=== PATIENT | female | born 1955 | race Caucasian/White ===

== ENCOUNTER → 2023-04-01 14:38 | Outpatient (CLI) | payer MEDICARE, SELFPAY ==
--- NOTE | 2023-04-01 | DI.MG.S_ITS ---
BILATERAL DIGITAL SCREENING MAMMOGRAM 3D/2D WITH CAD: 04/01/2023 CLINICAL: Routine screening. No prior exams were available for comparison. Both breasts are heterogeneously dense, which may obscure small masses (category c / 51-75% glandular tissue). Current study was also evaluated with a Computer Aided Detection (CAD) system. There is a round focal asymmetry in the right breast at 10 o'clock middle depth. No other significant masses, calcifications, or other findings are seen in either breast. IMPRESSION: INCOMPLETE: NEEDS ADDITIONAL IMAGING EVALUATION The round focal asymmetry in the right breast is indeterminate. Additional views with possible ultrasound are recommended. Based on the Tyrer Cuzick model (a risk assessment model) the patient's lifetime risk is 9.7% and her 10 year risk is 4.9%. According to the ACR, ACS, and NCCN guidelines, an annual breast MRI exam along with mammogram is recommended if the patient's lifetime risk is 20% or greater. This exam was interpreted at Station ID: [id number]. NOTE: For mammograms, a report in lay terms will be sent to the patient. Approximately 15% of breast malignancies will not be visualized mammographically. In the management of a palpable breast mass, a negative mammogram must not discourage biopsy of a clinically suspicious lesion. Electronically Signed By: Nayeli la/amelie:04/01/2023 17:00:30 letter sent: Additional Imaging Needed ACR BI-RADS Category 0: Incomplete [id number]
== END ==
PROVIDERS: PCP Registered Nurse; Referring Provider Registered Nurse; Visit Provider Registered Nurse
DX: Z12.31 Encounter for screening mammogram for malignant neoplasm of breast (principal)
CPT/HCPCS: 77063; 77067

== ENCOUNTER → 2023-04-18 09:27 | Outpatient (CLI) | payer MEDICARE, SELFPAY ==
--- NOTE | 2023-04-18 | DI.US.S_ITS ---
LIMITED ULTRASOUND OF RIGHT BREAST: 04/18/2023 CLINICAL: Patient returns today to evaluate an asymmetry in the right breast. Comparison is made to exams dated: 04/18/2023 mammogram, 04/01/2023 mammogram - [facility], 05/08/2021 mammogram, 07/13/2019 mammogram, and 01/02/2016 mammogram - outside location. Color flow and real-time ultrasound of the right breast 9-12 o'clock region were performed. No definite sonographic correlate identified for mammographic mass seen in the upper outer quadrant. IMPRESSION: PROBABLY BENIGN Right breast oval circumscribed mass in the upper outer quadrant without sonographic correlate initially seen on baseline screening mammogram. Finding may represent an intramammary lymph node and is probably benign. A follow-up mammogram in 6 months is recommended to demonstrate stability. Findings and recommendations were conveyed to the patient at the time of imaging completion. This exam was interpreted at Station ID: [id number]. Electronically Signed By: Pamela duke/:04/24/2023 01:30:13 letter sent: Followup Recommended Ultrasound BI-RADS: 3 Probably benign
--- NOTE | 2023-04-18 | DI.MG.S_ITS ---
UNILATERAL RIGHT DIGITAL DIAGNOSTIC MAMMOGRAM 3D/2D WITH ADDITIONAL VIEWS: 04/18/2023 CLINICAL: Additional evaluation requested from prior study. Comparison is made to exams dated: 04/01/2023 mammogram - [facility], 05/08/2021 mammogram, 07/13/2019 mammogram, and 01/02/2016 mammogram - outside location. The right breast is heterogeneously dense, which may obscure small masses (category c / 51-75% glandular tissue). There is a 4 mm oval mass with a circumscribed margin in the right breast upper outer quadrant middle depth. Finding corresponds to mass seen on baseline screening mammogram 04/01/2023. No other significant masses or calcifications are seen in the breast. IMPRESSION: INCOMPLETE: NEEDS ADDITIONAL IMAGING EVALUATION Right breast upper outer quadrant 4 mm oval mass. Recommend further evaluation with targeted right breast ultrasound, which will immediately follow this exam. Based on the Tyrer Cuzick model (a risk assessment model) the patient's lifetime risk is 9.7% and her 10 year risk is 4.9%. According to the ACR, ACS, and NCCN guidelines, an annual breast MRI exam along with mammogram is recommended if the patient's lifetime risk is 20% or greater. This exam was interpreted at Station ID: [id number]. NOTE: For mammograms, a report in lay terms will be sent to the patient. Approximately 15% of breast malignancies will not be visualized mammographically. In the management of a palpable breast mass, a negative mammogram must not discourage biopsy of a clinically suspicious lesion. Electronically Signed By: Pamela Shahid M.D. esb/:04/19/2023 01:20:33 ACR BI-RADS Category 0: Incomplete [id number]
== END ==
PROVIDERS: PCP Registered Nurse; Referring Provider Registered Nurse; Visit Provider Registered Nurse
DX: N63.11 Unspecified lump in the right breast, upper outer quadrant; R92.8 Other abnormal and inconclusive findings on diagnostic imaging of breast
CPT/HCPCS: 76642; 77065; G0279

== ENCOUNTER → 2023-11-05 11:54 | Outpatient (CLI) | payer MEDICARE, SELFPAY ==
--- NOTE | 2023-11-05 11:56 | DI.MG.S_ITS ---
UNILATERAL RIGHT DIGITAL DIAGNOSTIC MAMMOGRAM 3D/2D: 11/05/2023 CLINICAL: Right short follow up. Comparison is made to exams dated: 04/18/2023 mammogram, 04/01/2023 mammogram - [facility], and 05/08/2021 mammogram - outside location. The right breast is heterogeneously dense, which may obscure small masses (category c / 51-75% glandular tissue). Redemonstration of previously described 4 mm oval mass with a circumscribed margin in the right breast superior lateral quadrant anterior depth. This is not significantly changed and was not seen on the prior ultrasound. No other significant masses or calcifications are seen in the breast. IMPRESSION: PROBABLY BENIGN The stable 4 mm oval mass in the right breast is probably benign. A follow-up bilateral mammogram in 6 months is recommended to demonstrate stability. Findings and recommendations were conveyed to the patient during today's evaluation. Based on the Tyrer Cuzick model (a risk assessment model) the patient's lifetime risk is 9.3% and her 10 year risk is 4.9%. According to the ACR, ACS, and NCCN guidelines, an annual breast MRI exam along with mammogram is recommended if the patient's lifetime risk is 20% or greater. This exam was interpreted at Station ID: [id number]. NOTE: For mammograms, a report in lay terms will be sent to the patient. Approximately 15% of breast malignancies will not be visualized mammographically. In the management of a palpable breast mass, a negative mammogram must not discourage biopsy of a clinically suspicious lesion. Electronically Signed By: William Alejandre M.D. aty/:11/05/2023 12:41:52 letter sent: Followup Recommended ACR BI-RADS Category 3: Probably benign [id number]
== END ==
PROVIDERS: PCP Registered Nurse; Referring Provider Registered Nurse; Visit Provider Registered Nurse
DX: R92.8 Other abnormal and inconclusive findings on diagnostic imaging of breast (principal); N63.11 Unspecified lump in the right breast, upper outer quadrant; R92.331 Mammographic heterogeneous density, right breast
CPT/HCPCS: 77065; G0279

== ENCOUNTER 2023-12-21 10:28 | Emergency (ER) | payer MEDICARE, SELFPAY ==
[2023-12-21] VITALS (10 sets, daily range): BP systolic 133–147; BP diastolic 2–82; PULSE 61–84; RESP 16; TEMP 36.9; O2SAT 96–99; BMI 31.3
[2023-12-21] MEDS: PROPARACAINE 0.5% OPHTH SOL 1 DROPS EYE-BOTH (11:17)
--- NOTE | 2023-12-21 11:17 | ED_ITS ---
HPI - Eye Problem General Chief complaint: Eye Problems Stated complaint: Retinal detachment left eye Time Seen by Provider: 12/21/23 11:07 Source: patient Mode of arrival: Ambulatory Limitations: no limitations History of Present Illness HPI Narrative: This is a 68-year-old female with history of hypothyroidism, peripheral vitreous detachment on the right with intervention patient who wears glasses. Patient presents with concern for retinal detachment of the left eye. She states she has normal spider webbing in her vision in both eyes, last night noticed a backwards 3 in her left eye vision. This morning it had turned into a black spot. She is also noticed a few flashes on the left side as well. The spot resolves if she covers her left eye returns when she covers her right. It moves when she moves her eye. She does not have any pain she has not had any erythema, no swelling or drainage. She denies headaches or other symptoms. She has not had any nausea or vomiting. She states only home medication is levothyroxine takes Advil occasionally. Has allergies reported to morphine, sulfa and amoxicillin. Patient notes she had treatment to her right eye for vitreal detachment but has not ever had any interventions on the left. She was following regularly with Ophthalmology and a retinal specialist in [place] but has recently moved to the area and has not established with an ophthalmolo gist. Related Data Allergies Allergy/AdvReac Type Severity Reaction Status Date / Time morphine Allergy Vomiting Verified 12/21/23 11:17 Sulfa (Sulfonamide Allergy Hives Verified 12/21/23 11:17 Antibiotics) amoxicillin AdvReac Gastrointestinal Verified 12/21/23 11:17 Upset Review of Systems Review of Systems ROS Unobtainable: All systems reviewed & are unremarkable except as noted in HPI and below Patient History Social History Smoking Status: Never smoker Smoking Status: Never smoker alcohol intake frequency: a few times a month Substance Use Type: does not use Exam Narrative Exam Narrative: GEN: well nourished, well appearing female, alert and oriented x 3, patient appears to be in mild distress. HEENT: Atraumatic, pupils are equal round reactive to light, extraocular movements are intact, nares are clear, TMs are clear with no fluid, there is no conjunctival pallor. Throat is clear without any exudates, erythema, tonsillar enlargement or uvular deviation Visual acuity: right [20/20], left [20/25] with corrective glasses, 20/20 bilaterally. IOP: Right 19 mm Hg, Left 20 mm Hg General: no globe trauma Eyelids: normal inspection, eyelids everted for exam on left. Conjunctiva/Sclera: normal inspection Corneas: normal inspection, examined with fluroscein on bilateral punctate uptake. EOM: intact, no palsy/entrapment Pupils: PERRL, normal accomadation, pupil normal Anterior Chambers: normal inspection, no hypema Posterior: normal fundoscopic on of the left haziness over to the left lateral border but no clear retinal detachment noted. HEART: Regular rate and rhythm without murmur, clicks, rubs. No carotid bruits, pulses are equal in upper and lower extremities LUNGS:Lungs clear to auscultation, no wheezes, rales, crackles, chest moves symmetrically MSCL: full range of motion, normal gait NEURO:CN 2-12 intact, sensation normal Initial Vital Signs Initial Vital Signs: Vital Signs Pulse Rate 74 12/21/23 10:55 Blood Pressure 147/72 H 12/21/23 10:55 Pulse Oximetry 96 12/21/23 10:55 Course Orders Ordered: Discontinued Medications Fluorescein Sodium (Fluorescein 1 Mg Strip) 1 mg EYE-BOTH NOW ONE Stop: 12/21/23 11:08 Last Admin: 12/21/23 11:18 Dose: 1 mg Documented By: KEANU Proparacaine HCl (Proparacaine 0.5% Ophth Azeb) 1 drops EYE-BOTH NOW ONE Stop: 12/21/23 11:08 Last Admin: 12/21/23 11:17 Dose: 1 drop Documented By: KEANU Vital Signs Vital signs: Vital Signs - 8 hr 12/21/23 11:12 12/21/23 11:12 12/21/23 11:30 Pulse Rate 68 62 Blood Pressure 146/80 H Pulse Oximetry 97 98 Oxygen Delivery Method 12/21/23 11:42 12/21/23 11:42 12/21/23 12:00 Pulse Rate 65 66 Blood Pressure 137/75 Pulse Oximetry 96 98 Oxygen Delivery Method 12/21/23 12:01 12/21/23 12:01 12/21/23 12:08 Pulse Rate 67 64 Blood Pressure 140/67 Pulse Oximetry 97 96 Oxygen Delivery Method 12/21/23 12:08 12/21/23 12:30 Pulse Rate 61 Blood Pressure 136/70 134/76 Pulse Oximetry 98 Oxygen Delivery Method Room Air MDM - Eye Problem MDM Narrative Medical decision making narrative: 68-year-old female presents with a concern for retinal detachment her history somewhat concerning exam there is a little bit of change in the left posterior eye but did not clearly detachment. Pressures are appropriate, visual acuity is actually quite good but she has had some progressive symptoms. There is no Ophthalmology on-call at our facility or available this weekend. Call to [facility] Ophthalmology, spoke with Dr. Marx with Ophthalmology. She notes that this could be potential posterior detachment versus vitreal. Would recommend repeat eye exam within 24-48 hours for dilated eye exam. Discussed can not get her in any way locally before Saturday but can be seen Saturday. She states this would be acceptable unless patient is having any changes to vision. Patient can self present to [facility] ED she is having any worsening symptoms or present to our emergency department again. Spoke with patient gave her options, we also discussed she can drive directly down to [facility] ED to be evaluated this weekend by Ophthalmology. Ophthalmology did discuss that has an option for her to self present she is having any worsening changes. Did contact for ophthalmology follow up Saturday. Discharge Plan Departure Patient Disposition: Home Clinical Impression: Alteration in vision Activity Restrictions/Additional Instructions: I spoke with the ophthalmology at [facility], they recommend a dilated eye exam with the next 24-48 hours. If you are comfortable you can be seen by Dr. Heart or Dr. Riley here locally on Saturday. You can call the below number to set up an appointment 1st thing Saturday. There is concern for possible vitreal de tachment versus retinal detachment. They do recommend if you have any worsening changes in the interim to return here to be transferred to [facility] or you can go directly to [facility] Emergency Department. Please return if you are having worsening vision changes new pain, any headaches, vomiting, redness swelling or other changes to your eye. Referrals: Brent Heart MD [Physician] - Milady Dougherty ARNP [Primary Care Provider] - Stand Alone Forms: Patient Portal/API
[2023-12-21] MEDS: FLUORESCEIN 1 MG STRIP EYE-BOTH (11:18)
== END 2023-12-21 12:30 | disposition home or self-care (01) ==
PROVIDERS: Emergency Provider Emergency Medicine; PCP Registered Nurse
DX: H53.8 Other visual disturbances (principal)
CPT/HCPCS: 99282; 99283

== ENCOUNTER → 2024-01-21 10:39 | Outpatient (CLI) | payer MEDICARE, SELFPAY ==
--- NOTE | 2024-01-21 10:41 | DI.RAD.S_ITS ---
PROCEDURE: XR DEXA AXIAL SKELETON INDICATIONS: OSTEOPOROSIS SCREENING/POSTMENOPAUSAL STATUS COMPARISON: None. FINDINGS: Lumbar Spine: Bone mineral density is 0.876 g/cm2, T score -1.6, osteopenia. Left Hip: Bone mineral density 0.664 g/cm2, T score -2.3, osteopenia. Left Femoral Neck: Bone mineral density 0.549 g/cm2, T score -2.7, osteoporosis. Right Hip: Bone mineral density is 0.654 g/cm2, T score -2.4, osteopenia. Right Femoral Neck: Bone mineral density is 0.548 g/cm2, T score -2.7, osteoporosis. Fracture Risk Calculation (when applicable): Not listed due to osteoporosis. IMPRESSION: Osteoporosis. Follow-up guidelines as follows: Osteoporosis: Consider a repeat DEXA and Vertebral Fracture Assessment (VFA) exam in 2 years or sooner if medically necessary, to reassess this patient's status. Osteopenia: Consider a repeat DEXA in 2-3 years to reassess this patient's status, or if there is a new clinical indication. Normal: Consider a repeat DEXA in 5 years or sooner, or if there is a new clinical indication. All treatment decisions require clinical judgment and consideration of individual patient factors, including patient preferences, comorbidities, previous drug use, risk factors not captured in the FRAX model (e.g., frailty, falls, vitamin D deficiency, increased bone turnover, interval significant decline in bone density ) and possible under- or over-estimation of fracture risk by FRAX. In addition, the NOF Guide recommends that FDA-approved medical therapies be considered in postmenopausal women and men age >= 50 years with a: * Hip or vertebral (clinical or morphometric) fracture * T-score of <=-2.5 at the spine or hip * Ten-year fracture probability by FRAX of >= 3% for hip fracture or >=20% for major osteoporotic fracture. People with diagnosed cases of osteoporosis or at high risk for fracture should have regular bone mineral density tests. For patients eligible for Medicare, routine testing is allowed once every 2 years. The testing frequency can be increased to one year for patients who have rapidly progressing disease, those who are receiving or discontinuing medical therapy to restore bone mass, or have additional risk factors. Dictated by: Gavino Gifford M.D. on 01/21/2024 at 12:10 Approved by: Gavino Gifford M.D. on 01/21/2024 at 12:12
== END ==
LOC: RAD 10:40
PROVIDERS: PCP Registered Nurse; Referring Provider Registered Nurse; Visit Provider Registered Nurse
DX: M81.0 Age-related osteoporosis without current pathological fracture (principal); Z13.820 Encounter for screening for osteoporosis; Z78.0 Asymptomatic menopausal state
CPT/HCPCS: 77080

== ENCOUNTER → 2024-05-22 08:48 | Outpatient (CLI) | payer MEDICARE, SELFPAY ==
--- NOTE | 2024-05-22 | DI.MG.S_ITS ---
BILATERAL DIGITAL DIAGNOSTIC MAMMOGRAM 3D/2D: 05/22/2024 CLINICAL: Patient returns for a 6 month follow up of the right breast, due for bilateral exam. Comparison is made to exams dated: 11/05/2023 mammogram, 04/18/2023 mammogram, 04/01/2023 mammogram - [facility], 05/08/2021 mammogram, and 07/13/2019 mammogram - outside location. The breasts are heterogeneously dense, which may obscure small masses (category c / 51-75% glandular tissue). There is a stable 4 mm oval mass with a circumscribed margin in the right breast superior lateral quadrant anterior depth. This was not seen on the prior ultrasound. No other significant masses, calcifications, or other findings are seen in either breast. IMPRESSION: PROBABLY BENIGN The stable 4 mm oval mass in the right breast most likely is an intramammary node and is probably benign. A follow-up mammogram in 12 months is recommended to demonstrate long-term stability. Exam findings were conveyed to the patient. Based on the Tyrer Cuzick model (a risk assessment model) the patient's lifetime risk is 9.3% and her 10 year risk is 4.9%. According to the ACR, ACS, and NCCN guidelines, an annual breast MRI exam along with mammogram is recommended if the patient's lifetime risk is 20% or greater. This exam was interpreted at Station ID: [id number]. NOTE: For mammograms, a report in lay terms will be sent to the patient. Approximately 15% of breast malignancies will not be visualized mammographically. In the management of a palpable breast mass, a negative mammogram must not discourage biopsy of a clinically suspicious lesion. Electronically Signed By: Rajiv Griffith M.D. [facility] [place]/:05/22/2024 09:30:09 letter sent: Followup Recommended ACR BI-RADS Category 3: Probably Benign
== END ==
PROVIDERS: PCP Registered Nurse; Referring Provider Registered Nurse; Visit Provider Registered Nurse
DX: R92.8 Other abnormal and inconclusive findings on diagnostic imaging of breast (principal); R92.333 Mammographic heterogeneous density, bilateral breasts; N63.11 Unspecified lump in the right breast, upper outer quadrant
CPT/HCPCS: 77066; G0279

== ENCOUNTER 2024-07-17 13:07 | Day surgery (SDC) | payer MEDICARE, SELFPAY ==
--- NOTE | 2024-07-17 | PATH_ITS ---
[facility] Accession Number: [id number] No. of containers..01 Tissue . 01 Material submitted: . esophagus, E-G Junction - GE JUNCTION . 01 Diagnosis: GE JUNCTION: Gastroesophageal junction mucosa with mild changes consistent with reflux. No goblet cell metaplasia or dysplasia identified. STO 07/23/20241752 Local . 01 Electronically signed: . Braulio Arzola MD, Pathologist NPI- [id number] . 01 Gross description: . Received in formalin with two patient identifiers and GE junction, are two willis soft tissue fragments, 0.2 to 0.5 cm in greatest dimension, submitted in A1. ([id number]) /MRV 07/23/20241752 Local . 01 Microscopic: . GE JUNCTION: An ABPAS stain was performed to evaluate for goblet cell metaplasia and is negative. The control stains appropriately. . 01 Pathologist provided ICD-10: K21.00 . 01 CPT . 834445, 531610 Specimen Comment: A courtesy copy of this report has been sent to [phone] Performed at: [address] [id number] MD Braulio Arzola MD Phone: [phone]
--- NOTE | 2024-07-17 13:35 | PM.HP.1 ---
History of Present Illness History of Present Illness Date Patient Seen: 07/17/24 Time Patient Seen: 13:35 Chief complaint: SDC Narrative: 69-year-old woman with a history of reflux here for diagnostic esophagogastroduodenoscopy no dysphagia hematemesis unintentional weight loss. [facility] Social History household members: none Smoking Status: Never smoker Meds Home Medications and Allergies Home Medications Medication Instructions Recorded Confirmed Type levothyroxine 100 mcg tablet 100 mcg PO DAILY 02/10/24 07/17/24 History Allergies Allergy/AdvReac Type Severity Reaction Status Date / Time morphine Allergy Vomiting Verified 12/21/23 11:17 Sulfa (Sulfonamide Allergy Hives Verified 12/21/23 11:17 Antibiotics) erythromycin base AdvReac upset Verified 02/10/24 08:56 stomach Exam Narrative Exam Narrative: General adult woman alert oriented no acute distress Chest nonlabored respiration Extremities warm well perfused Assessment & Plan Assessment and plan (1) GERD (gastroesophageal reflux disease): Status: Acute Assessment & Plan narrative: 69-year-old woman with a history of reflux here for diagnostic esophagogastroduodenoscopy. Overview of procedure its risks benefits alternatives discussed. She provides informed consent to proceed. Time-Based Coding :: [TOTAL MINUTES] spent with patient and on the chart (including review of chart, obtaining history, exam, reviewing outside data, placing orders, documenting exam and treatment plan, and counseling patient) on [DATE].
[2024-07-17 13:54] VITALS: BP 123/77; PULSE 70; RESP 16; TEMP 36.5; O2SAT 98; BMI 28.3
--- NOTE | 2024-07-17 14:44 | SUR.OPER ---
EGD SCOPE 282
[2024-07-17 14:57] VITALS: BP 119/75; PULSE 67; RESP 16; TEMP 36.2; O2SAT 98
[2024-07-17 15:02] VITALS: BP 119/75; PULSE 63; RESP 16; O2SAT 98
--- NOTE | 2024-07-17 15:06 | PM.OP.EGD ---
Operative Date/Time/Diagnoses Date of procedure: 07/17/24 Time of procedure: 15:06 Pre-op diagnosis: GERD Post-op diagnosis: other (Hiatal hernia) Procedure & Clinicians Study performed: Esophagogastroduodenoscopy Same procedure as scheduled: Yes Indications: 69-year-old woman with symptomatic reflux here for diagnostic esophagogastroduodenoscopy Surgeon: Gianluca Collins Procedure Notes Procedure in detail: The history and physical was performed/updated and the patient is ASA class is 2. The procedure was discussed in detail with the patient. Potential risks complications including infection, bleeding, missed diagnosis, perforation, need for surgery, and were explained. Their questions were answered and informed consent was obtained. Patient placed in left lateral decubitus position. Time out was performed. Procedural sedation was administered by Anesthesia. A bite block was placed. the scope was inserted into the mouth and advanced through the esophagus and into the stomach. The pylorus was intubated and the duodenum was examined to the 2nd portion. The scope was then withdrawn into the stomach and was retroflexed. The stomach was decompressed and scope was withdrawn slowly through the esophagus. FINDINGS -moderate-sized hiatal hernia -no overt findings of Barretts esophagus GE junction was biopsied with forceps The patient tolerated the procedure well and will be discharged when they meet criteria. Specimen(s): other (GE junction) Impression: Hiatal hernia Post-procedure Plan for aftercare: Omeprazole 20 mg daily if inadequate control of reflux can discuss referral for anti-reflux surgery Disposition: same day surgery
[2024-07-17 15:07] VITALS: BP 113/78; PULSE 65; RESP 16; TEMP 36.2; O2SAT 99
== END 2024-07-17 15:35 | disposition home or self-care (01) ==
PROVIDERS: PCP Registered Nurse; Referring Provider Surgery; Visit Provider Surgery
PROC: 0DJ08ZZ Inspection of Upper Intestinal Tract, Via Natural or Artificial Opening Endoscopic (ICD-10-PCS; CPT 43235; principal; 2024-07-17 14:30)
DX: K21.9 Gastro-esophageal reflux disease without esophagitis (principal); K44.9 Diaphragmatic hernia without obstruction or gangrene
CPT/HCPCS: 43239; J2704

== ENCOUNTER → 2025-07-09 13:25 | Outpatient (CLI) | payer MEDICARE, SELFPAY ==
--- NOTE | 2025-07-09 13:30 | DI.MG.S_ITS ---
MM diagnostic mammo BI: 07/09/2025. BI-RADS: 2 CLINICAL: 70-year old female for bilateral diagnostic mammogram that is a follow-up to 05/22/2024. Tyrer-Cuzick lifetime risk of 6.6%. No personal or first-degree family history of breast cancer. PRIOR EXAMS 05/22/2024, 11/05/2023, 04/18/2023, 04/01/2023, 05/08/2021. MAMMOGRAPHY TECHNIQUE: 2D and 3D (tomosynthesis) digital mammographic views obtained, with additional images as needed for full coverage. Current study was also evaluated with a Computer Aided Detection (CAD) system. DENSITY C. The breasts are heterogeneously dense, which may obscure small masses. MAMMOGRAPHY FINDINGS Right: Upper Outer Quadrant, Middle depth, measuring 0.3cm: Correlating with prior imaging concern there is a circumscribed, oval, equal-density mass present that is unchanged in size and appearance. This finding has demonstrated two years of stability and is consistent with a benign etiology. No sonographic correlate was seen on prior ultrasound. Left: No suspicious mass, asymmetry, microcalcification, or other abnormality seen. IMPRESSION: Right * No evidence of malignancy with benign findings. Left * No evidence of malignancy. RECOMMENDATIONS Bilateral * Annual screening mammography. COMMENTS: Findings and recommendations were conveyed to the patient during today's evaluation. OVERALL ASSESSMENT CATEGORY BI-RADS-2: Benign. The [employer] recommends annual screening mammography beginning at age 40 for women with average risk of breast cancer. ELECTRONICALLY SIGNED: Libby Raza M.D. on 07/09/2025 at 02:58:52 PM PT Interpreting Station ID: [id number]
== END ==
LOC: MAMMO 13:29
PROVIDERS: PCP Registered Nurse; Referring Provider Registered Nurse; Visit Provider Registered Nurse
DX: R92.8 Other abnormal and inconclusive findings on diagnostic imaging of breast (principal); R92.333 Mammographic heterogeneous density, bilateral breasts
CPT/HCPCS: 77066; G0279